=== PATIENT | female | born 1995 | race Caucasian/White ===

== ENCOUNTER 2024-03-31 11:24 | Emergency (ER) | payer MEDICAID, SELFPAY ==
[2024-03-31 11:25] VITALS: BP 110/92; PULSE 88; RESP 16; TEMP 36.4; O2SAT 97; BMI 26.6
[2024-03-31 11:28] VITALS: BP 124/70; PULSE 86; RESP 24; TEMP 36.4; O2SAT 97
[2024-03-31 11:48] VITALS: O2SAT 98
--- NOTE | 2024-03-31 12:11 | EDS_ITS ---
HPI History of Present Illness Chief Complaint: Cough Informant: patient Onset/Context/Timing Onset: Days (4) Context: Gradual Onset Timing: Continuous Quality: Sharp Location: Left chest Worsened by: Coughing, breathing Relieved by: Nothing Narrative Narrative: Patient presents with pain in her left chest that has been getting worse over the last 4 days. Patient states she was seen in the emergency department at a different facility yesterday and had an x-ray done. Patient states she had to leave before she was discharged. Patient states she was told she had areas of her lungs that were collapsing. Patient states her pain is sharp. Patient states it is over the left upper chest and radiates into her back. Patient denies any sputum production. Patient denies any fevers or chills. Patient states her pain is worse with coughing and breathing. Patient denies any nausea or vomiting. [facility] Medical History Asthma Home Medications ?Medication ?Instructions ?Recorded ?Last Taken ?Type NK 03/31/24 Unknown History Allergy/AdvReac Type Severity Reaction Status Date / Time No Known Allergies Allergy Verified 03/31/24 11:28 Surgical History Previous section Social History Smoking Status: Former smoker ROS ROS ED Constitutional Constitutional ED: Denies chills or fever(s) Eyes Eyes: Denies blurry vision or change in vision ENT ENT ED: Denies rhinorrhea or sore throat Cardiovascular Cardiovascular: Reports chest pain; Denies palpitations Respiratory/Chest Respiratory/Chest: Reports cough and dyspnea Gastrointestinal Gastrointestinal: Denies nausea or vomiting Genitourinary Genitourinary ED: Denies dysuria or hematuria Musculoskeletal Musculoskeletal: Reports back pain; Denies neck pain Integumentary Denies abscess or rash Neurologic Neurologic: Denies headache(s) or weakness Allergic/Immunologic Allergic/Immunologic ED: Denies mouth swelling or urticaria EXAM Physical Exam Const Vital Signs: 03/31/24 11:25 03/31/24 11:28 03/31/24 11:48 Temperature 97.6 F L 97.6 F L Temperature Source Oral Oral Pulse Rate 88 86 Respiratory Rate 16 24 H Respiratory Effort Short of Breath Respiratory Depth Normal Respiratory Pattern Tachypnea Blood Pressure 110/92 H 124/70 H Blood Pressure Mean 98 88 Pulse Ox 97 97 Oxygen Delivery Method Room Air Room Air Room Air 03/31/24 12:28 03/31/24 13:25 03/31/24 14:27 Temperature 97.6 F L Temperature Source Oral Pulse Rate 78 59 L 72 Respiratory Rate 20 H 19 H 16 Respiratory Effort Respiratory Depth Respiratory Pattern Blood Pressure 123/62 H Blood Pressure Mean 82 Pulse Ox 96 98 Oxygen Delivery Method Room Air Positive well nourished and well developed General Appearance ED: well developed and NAD HEENT Reports moist mucous membranes Neck supple and no JVD Chest Wall Chest Narrative: There is tenderness of the left upper chest. There is no edema or ecchymosis. There is no bony crepitus or step-off noted. There is no subcutaneous emphysema noted. Resp normal respiratory effort Auscultation: rhonchi and diminished lung sounds Cardio regular rate and regular rhythm GI non-tender and non-distended Palpation: soft Neuro oriented x3, CN's II-XII intact bilaterally and no sensory deficits noted Sensorium / Orientation: alert Motor Exam: strength 5/5 throughout Psych mental status grossly normal MDM MDM MDM Narrative Medical decision making narrative: Differential diagnose includes pneumonia, pneumothorax, bronchitis, pleurisy, and viral illness. Chest x-ray will be obtained to assess for pneumonia and pneumothorax. COVID-19, influenza, and RSV PCR will be obtained to assess for viral illness. Lab Data Attestation: I reviewed the patient's lab results. Lab results narrative: COVID-19 PCR was reviewed and was negative. Influenza PCR was reviewed and was negative for influenza A and influenza B. RSV PCR was reviewed and was negative. Radiography Chest X-Ray - ED: 2 View, Read by ED Physician, Read by Radiologist and No Acute Disease Diagnostic Testing: Clinical Impression(s) from Imaging Studies Chest X-Ray 03/31/24 12:16 IMPRESSION: Normal x-ray examination of the chest. Electronically Signed: Lenin Mendoza MD at 13:06 EST , PA and lateral chest x-ray was obtained. There are 2 views. On my independent interpretation, lung varela are clear. There is normal cardiac silhouette. Bony thorax is normal. There is no acute process noted. Radiologist also interpreted the x-ray and agrees. Treatment and Re-Evaluation :: Patient was given a DuoNeb aerosol here. Patient was given injection of Toradol. Patient is feeling somewhat better on reevaluation. Patient was advised of her findings. Patient was advised that this is most likely a viral illness and antibiotics are not indicated at this time. Patient was instructed to drink plenty of fluids. Patient was instructed to take Tylenol or ibuprofen as needed for pain or fevers. Patient was instructed to follow-up with her primary care physician in 5 to 7 days. Patient was instructed to return if worse in any way. Patient understood and was agreeable with the plan. All questions were answered. Discharge Plan Triage Chief Complaint: Cough ED Provider: Boom [facility] Dx/Rx/DC Orders Clinical Impression: Acute viral bronchitis Instructions: ED Bronchitis, No Antibiotic (Adult) Prescriptions: No Action NK Primary Care Provider: Care Physician,No Primary Referrals: Keena Sexton DO [Med Staff - Active Staff] - 5-7 Days Care Physician,No Primary [Primary Care Provider] - Print Language: Dominican Disposition Disposition: Home, Self Care
--- NOTE | 2024-03-31 12:16 | RAD_ITS ---
STUDY: X-RAY CHEST REASON FOR EXAM: Female, 29 years old. Pain TECHNIQUE: PA and lateral views of the chest. COMPARISON: None. FINDINGS: The lungs are clear and expanded. There is no demonstrated pleural abnormality. Normal size heart. Normal mediastinum and devonte. Normal visualized pulmonary arteries. Normal visualized aortic arch and descending thoracic aorta. Normal visualized thoracic spine. Normal visualized ribs, clavicles, and shoulders. There is no demonstrated abnormality of the visualized soft tissue structures of the upper abdomen. RAD/Chest PA and Lateral IMPRESSION: Normal x-ray examination of the chest. Electronically Signed: Lenin Mendoza MD at 13:06 [facility] ,
--- NOTE | 2024-03-31 12:18 | ED.RN ---
Patient transported to radiology
[2024-03-31 12:28] VITALS: BP 123/62; PULSE 78; RESP 20; TEMP 36.4; O2SAT 96
[2024-03-31] MEDS: Ketorolac 60 MG/2 ML Vial IM (12:28)
[2024-03-31 13:25] VITALS: PULSE 59; RESP 19; O2SAT 98
--- NOTE | 2024-03-31 14:22 | ED.RN ---
Respiratory bedside for breathing treatment
[2024-03-31] MEDS: Ipratropium/Albuterol Sulfate 3 ML AMPUL.NEB INHALATION (14:26)
[2024-03-31 14:27] VITALS: PULSE 72; RESP 16
--- NOTE | 2024-03-31 14:30 | ED.RN ---
Patient states that she wants to be updated to RT. This RN bedside to give patient update that we are just waiting on re-eval by physician. Patient did turn off her own breathing treatment and removed tubing herself.
== END 2024-03-31 14:57 | disposition home or self-care (01) ==
PROVIDERS: Emergency Provider Emergency Medicine; Visit Provider Emergency Medicine
DX: J20.8 Acute bronchitis due to other specified organisms (principal); Z87.891 Personal history of nicotine dependence
CPT/HCPCS: 71046; 87631; 94640; 96374; 99282